=== PATIENT | female | born 1985 | race Caucasian/White ===

== ENCOUNTER 2020-04-19 16:04 | Observation (INO) ==
[2020-04-19 17:26] LABS: Basophils % 0.2 %; Eosinophils # 0.1 K/mcL (0.0-0.6); Eosinophils % 0.6 %; Hematocrit 28.5 % (35.3-44.9); Hemoglobin 8.8 g/dL (11.5-15.4); Immature Granulocytes % 1.1 % (0-4); Lymphocytes # 0.5 K/mcL (0.6-4.6); Mean Corpuscular HGB Conc 30.9 g/dL (31.6-35.5); Mean Corpuscular Volume 77.7 fL (83.0-100.0); Mean Platelet Volume 9.6 fL (9.4-12.4); Monocytes # 1.2 K/mcL (0.0-1.3); Monocytes % 6.7 %; Neutrophils # 15.9 K/mcL (1.6-8.9); Nucleated Red Blood Cells 0.1 /100 WBC (0); Platelet Count 332 K/mcL (140-400); Red Blood Count 3.67 M/mcL (3.82-4.97); Red Cell Distribution Width 17.7 % (11.5-14.5); Segmented Neutrophils % 88.4 %
[2020-04-19 17:45] LABS: BUN/Creatinine Ratio 16 (6-26); Blood Urea Nitrogen 15 mg/dL (6-20); Calcium 8.7 mg/dL (8.6-10.3); Carbon Dioxide 25 mEq/L (23-29); Chloride 101 mEq/L (98-107); Glucose 114 mg/dL (70-105); Osmolality,Calculated 282 (280-300); Potassium 4.1 mEq/L (3.5-5.1); Sodium 135 mEq/L (136-145); Troponin I < 0.03 ng/mL (< 0.04); eGFR For African Americans > 60 (> 60); eGFR For Non-African Americans > 60 (> 60)
[2020-04-19 18:38] LABS: Bilirubin,Urine Small (Negative); Blood,Urine Negative (Negative); Clarity,Urine Slightly Cloudy (Clear); Glucose,Urine (UA) Normal (Normal); Ketones,Urine Negative (Negative); Leukocyte Esterase,Urine Small (Negative); Nitrite,Urine Negative (Negative); PH,Urine 5.5 pH Units (5.0-8.0); Protein,Urine 30 mg/dL (Neg-Trace); Specific Gravity,Urine 1.025 (1.010-1.025); Urobilinogen,Urine Normal (Normal)
[2020-04-19 18:39] LABS: Color,Urine Dark Yellow (Yellow)
[2020-04-19 18:46] LABS: Hyaline Casts,Urine Few per lpf (None Seen); Mucus,Urine Moderate per lpf (None-Few); Squamous Epithelial Cell,Urine Moderate per hpf (None-Few)
[2020-04-19] MEDS ORDERED: Azithromycin 500 MG in 0.9 % Sodium Chloride 250 ML IVPB ONE (20:45)
[2020-04-19] MEDS ORDERED: Ondansetron 4 MG/2 ML VIAL IVP ONE (20:47)
[2020-04-19] MEDS ORDERED: 0.9 % Sodium Chloride 1,000 ML IVC ONE (20:47)
[2020-04-19] MEDS ORDERED: Vancomycin 2,000 MG/520 ML IV.SOLN IVPB ONE (21:13)
[2020-04-19] MEDS ORDERED: 0.9 % Sodium Chloride 1,000 ML ONE (22:07)
[2020-04-19 23:03] LABS: Adenovirus Not Detected (Not Detect); Bordetella Pertussis Not Detected (Not Detect); Chlamydophila pneumoniae Not Detected (Not Detect); Coronavirus 229E Not Detected (Not Detect); Coronavirus HKU1 Not Detected (Not Detect); Coronavirus NL63 Not Detected (Not Detect); Coronavirus OC43 Not Detected (Not Detect); Human Metapneumovirus Not Detected (Not Detect); Human Rhinovirus/Enterovirus Not Detected (Not Detect); Influenza A Subtype 2009 H1 Not Detected (Not Detect); Influenza B Not Detected (Not Detect); Mycoplasma pneumoniae Not Detected (Not Detect); Parainfluenza Virus 1 Not Detected (Not Detect); Parainfluenza Virus 2 Not Detected (Not Detect); Parainfluenza Virus 3 Not Detected (Not Detect); Parainfluenza Virus 4 Not Detected (Not Detect); Respiratory Syncytial Virus Not Detected (Not Detect)
[2020-04-19] MEDS ORDERED: *HR* Enoxaparin 100 MG/ML SYRINGE SQ STA (23:45)
[2020-04-20] MEDS ORDERED: *HR* Enoxaparin 100 MG/ML SYRINGE SQ STA (00:17)
[2020-04-20] MEDS ORDERED: Naloxone 0.4 MG/ML INJ IVP PRN (00:42)
[2020-04-20] MEDS: 0.9 % Sodium Chloride 1,000 ML IVC SCH ×4 (00:57→21:48)
[2020-04-20] MEDS: Acetaminophen 325 MG TABLET PO PRN ×2 (01:11→09:18)
[2020-04-20] MEDS: Levothyroxine 25 MCG TABLET PO SCH (06:01)
[2020-04-20 07:10] LABS: Basophils % 0.2 %; Eosinophils # 0.1 K/mcL (0.0-0.6); Eosinophils % 0.3 %; Hemoglobin 8.2 g/dL (11.5-15.4); Immature Granulocytes % 1.8 % (0-4); Lymphocytes # 0.5 K/mcL (0.6-4.6); Lymphocytes % 2.6 %; Mean Corpuscular HGB Conc 31.5 g/dL (31.6-35.5); Mean Corpuscular Hemoglobin 24.4 pg (28.0-33.3); Mean Corpuscular Volume 77.4 fL (83.0-100.0); Mean Platelet Volume 9.8 fL (9.4-12.4); Monocytes # 0.3 K/mcL (0.0-1.3); Monocytes % 1.7 %; Neutrophils # 18.3 K/mcL (1.6-8.9); Nucleated Red Blood Cells 0.1 /100 WBC (0); Platelet Count 288 K/mcL (140-400); Red Blood Count 3.36 M/mcL (3.82-4.97); Red Cell Distribution Width 17.2 % (11.5-14.5); Segmented Neutrophils % 93.4 %; White Blood Count 19.6 K/mcL (4.3-11.1)
[2020-04-20] MEDS ORDERED: *HR* Dextrose 50 % in Water (Vial) 50 ML VIAL IVP PRN (08:04)
[2020-04-20] MEDS ORDERED: Dextrose Gel 15 GM/37.5 ML TUBE PO PRN ×2 (08:04)
[2020-04-20] MEDS ORDERED: D5% in Water 1,000 ML IVC PRN (08:04)
[2020-04-20] MEDS ORDERED: allopurinoL 100 MG TABLET PO SCH (09:00)
[2020-04-20] MEDS ORDERED: cefTRIAXone 2,000 MG in 0.9 % Sodium Chloride Mini Bag 100 ML IVPB SCH (09:00)
[2020-04-20] MEDS ORDERED: *HR* Metformin 500 MG TABLET PO SCH (09:00)
[2020-04-20 09:24] LABS: Calcium 8.3 mg/dL (8.6-10.3); Potassium 4.5 mEq/L (3.5-5.1)
[2020-04-20] MEDS: Gabapentin 300 MG CAPSULE PO SCH ×3 (10:16→21:47)
[2020-04-20] MEDS: gemfibroziL 600 MG TABLET PO SCH ×2 (10:16→21:47)
[2020-04-20] MEDS: atenoloL 25 MG TABLET PO SCH ×2 (10:16→21:47)
[2020-04-20 10:21] LABS: % Iron Saturation 3 % (15-50); Iron 13 mcg/dL (50-170); Transferrin 313 mg/dL (203-362)
[2020-04-20] MEDS: Vancomycin 2,000 MG/520 ML IV.SOLN IVPB SCH ×2 (11:25→22:52)
[2020-04-20] MEDS: Insulin LISPRO 300 UNITS/3 ML VIAL SQ SCH ×2 (11:25→16:49)
[2020-04-20 11:34] LABS: Acinetobacter baumannii by PCR Not Detected (Not Detect); Enterococcus by PCR Not Detected (Not Detect); Staphylococcus aureus by PCR Not Detected (Not Detect); Staphylococcus by PCR Not Detected (Not Detect); Streptococcus agalactiae(B)PCR Not Detected (Not Detect); Streptococcus pneumoniae PCR Not Detected (Not Detect); Streptococcus pyogenes (A) PCR DETECTED (Not Detect)
[2020-04-20 11:35] LABS: Candida albicans by PCR Not Detected (Not Detect); Candida glabrata by PCR Not Detected (Not Detect); Candida krusei by PCR Not Detected (Not Detect); Candida parapsilosis by PCR Not Detected (Not Detect); Candida tropicalis by PCR Not Detected (Not Detect); Enterobacter cloacae Cmplx PCR Not Detected (Not Detect); Enterobacteriaceae by PCR Not Detected (Not Detect); Escherichia coli by PCR Not Detected (Not Detect); Klebsiella oxytoca by PCR Not Detected (Not Detect); Klebsiella pneumoniae by PCR Not Detected (Not Detect); Proteus by PCR Not Detected (Not Detect); Pseudomonas aeruginosa by PCR Not Detected (Not Detect); Serratia marcescens by PCR Not Detected (Not Detect)
[2020-04-20] MEDS: Ondansetron 4 MG/2 ML VIAL IVP PRN ×2 (13:26→22:52)
[2020-04-20] MEDS: *HR* HYDROcodone/Acet 5/325 mg TABLET PO PRN ×2 (15:18→21:47)
[2020-04-20] MEDS: *HR* Enoxaparin 100 MG/ML SYRINGE SQ SCH (16:49)
[2020-04-20 17:24] LABS: Folate 6.8 ng/mL (3.0-16.0)
[2020-04-20] MEDS ORDERED: Aspirin 81 MG TAB.CHEW PO SCH (21:00)
[2020-04-20] MEDS ORDERED: Insulin DETEMIR 100 UNIT/ML X5UNITS SQ SCH (21:00)
[2020-04-20] MEDS ORDERED: Insulin LISPRO 300 UNITS/3 ML VIAL SQ SCH (21:00)
[2020-04-20] MEDS ORDERED: *HR* Pioglitazone 45 MG TABLET PO SCH (21:00)
[2020-04-21 02:03] VITALS: BP 125/67
[2020-04-21] MEDS: Acetaminophen 325 MG TABLET PO PRN (03:08)
[2020-04-21] MEDS: *HR* Enoxaparin 100 MG/ML SYRINGE SQ SCH (05:01)
[2020-04-21] MEDS: *HR* HYDROcodone/Acet 5/325 mg TABLET PO PRN (05:01)
[2020-04-21] MEDS: Levothyroxine 25 MCG TABLET PO SCH (05:01)
[2020-04-21] MEDS ORDERED: Aminoglycoside Consult 1 EACH MC ONE (06:10)
== END 2020-04-21 06:11 | disposition short-term general hospital (02) ==
LOC: INPPIK 16:04 → EMEROOPIK 16:04 → INPPIK 04-20 00:42
PROVIDERS: ADMIT Family Medicine; ATTEND Family Medicine